=== PATIENT | female | born 1995 | race Caucasian/White ===

== ENCOUNTER 2018-05-13 13:03 | Day surgery (SDC) | payer MEDICAID ==
[2018-05-13 14:26] LABS: APPEARANCE,URINE SLIGHTLY-CLOUDY; BILIRUBIN,URINE NEGATIVE (NEGATIVE); COLOR,URINE YELLOW; GLUCOSE, URINE NEGATIVE (NEGATIVE); KETONES,URINE NEGATIVE (NEGATIVE); LEUKOCYTE ESTERASE,URINE TRACE (NEGATIVE); NITRITE,URINE NEGATIVE (NEGATIVE); PROTEIN,URINE NEGATIVE (NEGATIVE)
[2018-05-13] MEDS ORDERED: ONDANSETRON 4 MG TAB.RAPDIS PO ONE (14:58)
--- NOTE | 2018-05-13 14:58 | ER Document Report ---
ED Medical Screen (RME) - General Chief Complaint: Upper Abdominal Pain Stated Complaint: ABDOMINAL PAIN Time Seen by Provider: 05/13/18 14:49 Notes: Patient presents with right upper and lower quadrant pain more in her lower quadrant radiating to her back continuous, has become increasingly worse since last night. Patient states that she has been having dry heaving and nausea but no vomiting. Last bowel movement was this morning, no black or red in her stool. Patient still has her appendix. No vaginal discharge or concern of vaginal infection. Patient had her gallbladder removed in November in [facility] of this year. I have greeted and performed a rapid initial assessment of this patient. A comprehensive ED assessment and evaluation of the patient, analysis of test results and completion of the medical decision making process will be conducted by additional ED providers. PHYSICAL EXAMINATION: GENERAL: Well-appearing, well-nourished and in no acute distress. HEAD: Atraumatic, normocephalic. EYES: Pupils equal round extraocular movements intact, conjunctiva are normal. ENT: Nares patent NECK: Normal range of motion LUNGS: No respiratory distress Musculoskeletal: Normal range of motion Abdomen: TTP greater in RLQ more than RUQ, + Rovsings sign, +BS NEUROLOGICAL: Normal speech, normal gait. PSYCH: Normal mood, normal affect. SKIN: Warm, Dry, normal turgor, no rashes or lesions noted. TRAVEL OUTSIDE OF THE [place] IN LAST 30 DAYS: No - Related Data Allergies/Adverse Reactions: epinephrine Allergy (Verified 05/13/18 14:17) Physical Exam - Vital signs Vitals: Temp Pulse Resp BP Pulse Ox 98.6 F 87 14 114/82 98 05/13/18 13:08 05/13/18 13:08 05/13/18 13:08 05/13/18 13:08 05/13/18 13:08 Course - Vital Signs Vital signs: Temp Pulse Resp BP Pulse Ox 98.6 F 87 14 114/82 98 05/13/18 13:08 05/13/18 13:08 05/13/18 13:08 05/13/18 13:08 05/13/18 13:08 - Laboratory Laboratory results interpreted by me: 05/13/18 13:45 Urine Urobilinogen 4.0 H Ur Leukocyte Esterase TRACE H
[2018-05-13] MEDS ORDERED: SUCCINYLCHOLINE CHLORIDE INJ 200 MG/10 ML VIAL ONE (15:05)
[2018-05-13] MEDS ORDERED: ROCURONIUM BROMIDE INJ 50 MG/5 ML VIAL IV ONE (15:05)
[2018-05-13 15:32] LABS: ABSOLUTE BASOPHILS # (AUTO) 0.1 10^3/uL (0.0-0.2); ABSOLUTE EOSINOPHILS # (AUTO) 0.2 10^3/uL (0.0-0.6); ABSOLUTE LYMPHOCYTES (AUTO) 3.5 10^3/uL (0.5-4.7); ABSOLUTE MONOCYTES (AUTO) 0.9 10^3/uL (0.1-1.4); ABSOLUTE NEUT (AUTO) 5.2 10^3/uL (1.7-8.2); EOSINOPHILS % (AUTO) 1.8 % (0-6); HEMATOCRIT 42.3 % (36.0-47.0); HEMOGLOBIN 14.7 g/dL (12.0-15.5); LYMPHOCYTES % (AUTO) 35.2 % (13-45); MEAN CORPUSCULAR HEMOGLOBIN 30.6 pg (27.0-33.4); MEAN CORPUSCULAR HGB CONC 34.7 g/dL (32.0-36.0); MEAN CORPUSCULAR VOLUME 88 fl (80-97); MONOCYTES % (AUTO) 8.8 % (3-13); PLATELET COUNT 254 10^3/uL (150-450); RED BLOOD COUNT 4.78 10^6/uL (3.72-5.28); RED CELL DISTRIBUTION WIDTH 12.6 % (11.5-14.0); SEGMENTED NEUTROPHILS % (AUTO) 53.2 % (42-78); TOTAL CELLS COUNTED % (AUTO) 100 %; WHITE BLOOD COUNT 9.9 10^3/uL (4.0-10.5)
--- NOTE | 2018-05-13 15:46 | RADIOLOGY REPORT (SQ) ---
EXAM DESCRIPTION: CT ABD/PELVIS WITH IV ONLY COMPLETED DATE/TIME: 05/13/2018 3:28 pm REASON FOR STUDY: RLQ pain, + Rovsing's COMPARISON: None. TECHNIQUE: CT scan of the abdomen and pelvis performed using helical scanning technique with dynamic intravenous contrast injection. No oral contrast. Images reviewed with lung, soft tissue, and bone windows. Reconstructed coronal and sagittal MPR images reviewed. Delayed images for evaluation of the urinary system also acquired. All images stored on PACS. All CT scanners at this facility use dose modulation, iterative reconstruction, and/or weight based d osing when appropriate to reduce radiation dose to as low as reasonably achievable (ALARA). [facility]: Dose Right [facility]: CareDose [facility]: Dose Right [facility]: Teradose 4D [facility]: [employer] CONTRAST TYPE AND DOSE: contrast/concentration: Isovue 350.00 mg/ml; Total Contrast Delivered: 100.0 ml; Total Saline Delivered: 50.0 ml RENAL FUNCTION: None required. The patient is less than 50 years old. RADIATION DOSE: CT Rad equipment meets quality standard of care and radiation dose reduction techniq ues were employed. CTDIvol: 21.0 - 21.1 mGy. DLP: 2488 mGy-cm.. LIMITATIONS: None. FINDINGS: LOWER CHEST: No significant findings. No nodules or infiltrates. LIVER: Normal size. No masses. No dilated ducts. SPLEEN: Normal size. No focal lesions. PANCREAS: No masses. No significant calcifications. No adjacent inflammation or peripancreatic fluid collections. Pancreatic duct not dilated. GALLBLADDER: Surgically absent. ADRENAL GLANDS: No significant masses or asymmetry. RIGHT KIDNEY AND URETER: No solid masses. No significant calcifications. No hydronephrosis or hyd roureter. LEFT KIDNEY AND URETER: No solid masses. No significant calcifications. No hydronephrosis or hydr oureter. AORTA AND VESSELS: No aneurysm. No dissection. Renal arteries, SMA, celiac without stenosis. RETROPERITONEUM: No retroperitoneal adenopathy, hemorrhage or masses. BOWEL AND PERITONEAL CAVITY: No masses or inflammatory changes. No free fluid or peritoneal masses. APPENDIX: The appendix is thickened, measuring 10 mm in diameter on image 70. There is not appear to be significant periappendiceal stranding. PELVIS: No mass. No free fluid. Normal bladder. ABDOMINAL WALL: No masses. No hernias. BONES: Mild scoliosis. OTHER: No other significant finding. IMPRESSION: There is thickening of the appendix as described. No other evidence of inflammation is noted. Correlate clinically. TECHNICAL DOCUMENTATION: JOB ID: [id number] Quality ID # [id number]: Final reports with documentation of one or more dose reduction techniques (e.g., Au tomated exposure control, adjustment of the mA and/or kV according to patient size, use of iterative reconstruction technique) 2010 [employer]- All Rights Reserved Reading location - IP/workstation name: [facility]
[2018-05-13 15:50] LABS: ALANINE AMINOTRANSFERASE 20 U/L (9-52); ALBUMIN 4.3 g/dL (3.5-5.0); ALKALINE PHOSPHATASE 71 U/L (38-126); ANION GAP 12 (5-19); ASPARTATE AMINO TRANSFERASE 24 U/L (14-36); BILIRUBIN,DIRECT 0.3 mg/dL (0.0-0.4); BILIRUBIN,TOTAL 2.3 mg/dL (0.2-1.3); BLOOD UREA NITROGEN 12 mg/dL (7-20); CALCIUM 9.6 mg/dL (8.4-10.2); CARBON DIOXIDE 23 mmol/L (22-30); CHLORIDE 108 mmol/L (98-107); GLUCOSE 88 mg/dL (75-110); LIPASE 39.8 U/L (23-300); POTASSIUM 4.6 mmol/L (3.6-5.0); SODIUM 142.6 mmol/L (137-145); TOTAL PROTEIN 7.5 g/dL (6.3-8.2)
[2018-05-13] MEDS ORDERED: RINGERS SOLUTION,LACTATED 1,000 ML IV ONE ×2 (17:00→22:16)
[2018-05-13] MEDS ORDERED: AMPICILLIN SOD/SULBACTAM 3 GM VIAL IV ONE (17:28)
--- NOTE | 2018-05-13 17:30 | ER Document Report ---
ED General - General Chief Complaint: Upper Abdominal Pain Stated Complaint: ABDOMINAL PAIN Time Seen by Provider: 05/13/18 14:49 TRAVEL OUTSIDE OF THE [place] IN LAST 30 DAYS: No - HPI Patient complains to provider of: Right-sided abdominal pain Notes: Patient with a history of colectomy in November coming in for right-sided abdominal pain. Patient states occurred last night no fevers chills slight nausea no vomiting no diarrhea she denies any trauma. Patient points mostly to the right upper right lower quadrant as far as the pain. States no vaginal discharge no vaginal bleeding. Resting comfortably upon my evaluation. Patient states pain worse with movement and palpation. Decreased appetite - Related Data Allergies/Adverse Reactions: epinephrine Allergy (Verified 05/13/18 14:17) Past Medical History - Social History Smoking Status: Never Smoker Family History: Reviewed & Not Pertinent Patient has suicidal ideation: No Patient has homicidal ideation: No Renal/ Medical History: Denies: Hx Peritoneal Dialysis Past Surgical History: Reports: Hx Cholecystectomy, Hx Tonsillectomy Review of Systems - Review of Systems Constitutional: No symptoms reported EENT: No symptoms reported Cardiovascular: No symptoms reported Respiratory: No symptoms reported Gastrointestinal: Abdominal pain Genitourinary: No symptoms reported Female Genitourinary: No symptoms reported Musculoskeletal: No symptoms reported Skin: No symptoms reported Hematologic/Lymphatic: No symptoms reported Neurological/Psychological: No symptoms reported -: Yes All other systems reviewed and negative Physical Exam - Vital signs Vitals: Temp Pulse Resp BP Pulse Ox 98.6 F 87 14 114/82 98 05/13/18 13:08 05/13/18 13:08 05/13/18 13:08 05/13/18 13:08 05/13/18 13:08 Interpretation: Normal - General General appearance: Appears well, Alert - HEENT Head: Normocephalic, Atraumatic Eyes: Normal Pupils: PERRL - Respiratory Respiratory status: No respiratory distress Chest status: Nontender Breath sounds: Normal Chest palpation: Normal - Cardiovascular Rhythm: Regular Heart sounds: Normal auscultation Murmur: No - Abdominal Inspection: Normal Distension: No distension Bowel sounds: Normal Tenderness: Tender - Diffuse tenderness palpation of the right upper quadrant right lower quadrant. Regarding no rebound no psoas sign and obturator sign Organomegaly: No organomegaly - Back Back: Normal, Nontender - Extremities General upper extremity: Normal inspection, Nontender, Normal color, Normal ROM , Normal temperature General lower extremity: Normal inspection, Nontender, Normal color, Normal ROM , Normal temperature, Normal weight bearing. No: Lesley's sign - Neurological Neuro grossly intact: Yes Cognition: Normal Orientation: AAOx4 Sary Coma Scale Eye Opening: Spontaneous [place] Coma Scale Verbal: Oriented Sary Coma Scale Motor: Obeys Commands [place] Coma Scale Total: 15 Speech: Normal Motor strength normal: LUE, RUE, LLE, RLE Sensory: Normal - Psychological Associated symptoms: Normal affect, Normal mood - Skin Skin Temperature: Warm Skin Moisture: Dry Skin Color: Normal Course - Re-evaluation Re-evalutation: 05/13/18 22:38 CT scan showed thickened appendix. Reevaluation shows still right upper quadrant right lower quadrant abdominal pain. The contact surgery composite bond worker with the patient to the OR for exploratory lap. - Vital Signs Vital signs: Temp Pulse Resp BP Pulse Ox 98.6 F 87 14 114/82 98 05/13/18 13:08 05/13/18 13:08 05/13/18 13:08 05/13/18 13:08 05/13/18 13:08 - Laboratory Result Diagrams: 05/13/18 15:10 05/13/18 15:10 Laboratory results interpreted by me: 05/13/18 05/13/18 13:45 15:10 Chloride 108 H Total Bilirubin 2.3 H Urine Urobilinogen 4.0 H Ur Leukocyte Esterase TRACE H Discharge - Discharge Clinical Impression: Abdominal pain Qualifiers: Abdominal location: right lower quadrant Qualified Code(s): R10.31 - Right lower quadrant pain Admitting Provider: Surgicalist Nikki Bryson
--- NOTE | 2018-05-13 17:43 | PDOC H&P ---
History of Present Illness Patient complains of: Abdominal pain History of Present Illness: ROB HOLDER is a 22 year old female who was in usual state of good health until yesterday when after eating lunch she had some generalized malaise followed by severe right sided abdominal pain along with nausea and dry heaves and chills. Patient notes that the pain has been severe and unrelenting since. She notes that it is worsened with certain types of movements. She had some diarrhea earlier but none recently. No history of jaundice. Patient did have a laparoscopic cholecystectomy in November this year for gallstones. No history of alcohol abuse. No history of pancreatitis. No history of trauma. She had a vaginal delivery in October of this year and her periods have been irregular ever since. Past Surgical History Past Surgical History: Reports: Cholecystectomy, Tonsillectomy Social History Smoking Status: Never Smoker Frequency of Alcohol Use: None Family History Family History: Reviewed & Not Pertinent - Mother with kidney cancer Parental Family History Reviewed: Yes Children Family History Reviewed: Yes Sibling(s) Family History Reviewed.: Yes Medication/Allergy Allergies/Adverse Reactions: epinephrine Allergy (Verified 05/13/18 14:17) Physical Exam Vital Signs: Temp Pulse Resp BP Pulse Ox 98.6 F 87 14 114/82 98 05/13/18 13:08 05/13/18 13:08 05/13/18 13:08 05/13/18 13:08 05/13/18 13:08 Intake & Output 05/12/18 05/13/18 05/14/18 06:59 06:59 06:59 Weight 117.8 kg General appearance: PRESENT: no acute distress, cooperative Eye exam: PRESENT: conjunctiva pink Respiratory exam: PRESENT: clear to auscultation estrada Cardiovascular exam: PRESENT: RRR GI/Abdominal exam: PRESENT: other - Soft, obese, difficult to tell whether she is distended, diffuse abdominal tenderness with marked tenderness to palpation on the right abdomen with rebound tenderness. Extremities exam: PRESENT: other - No swelling Neurological exam: PRESENT: alert, awake Psychiatric exam: PRESENT: appropriate affect Skin exam: PRESENT: warm Results Laboratory Results: 05/13/18 15:10 05/13/18 15:10 05/13/18 05/13/18 05/13/18 13:45 15:10 15:10 WBC 9.9 RBC 4.78 Hgb 14.7 Hct 42.3 MCV 88 MCH 30.6 MCHC 34.7 RDW 12.6 Plt Count 254 Seg Neutrophils % 53.2 Lymphocytes % 35.2 Monocytes % 8.8 Eosinophils % 1.8 Basophils % 1.0 Absolute Neutrophils 5.2 Absolute Lymphocytes 3.5 Absolute Monocytes 0.9 Absolute Eosinophils 0.2 Absolute Basophils 0.1 Sodium 142.6 Potassium 4.6 Chloride 108 H Carbon Dioxide 23 Anion Gap 12 BUN 12 Creatinine 0.75 Est GFR ( Amer) > 60 Est GFR (Non-Af Amer) > 60 Glucose 88 Calcium 9.6 Total Bilirubin 2.3 H AST 24 ALT 20 Alkaline Phosphatase 71 Total Protein 7.5 Albumin 4.3 Lipase 39.8 Serum HCG, Qual Urine Color YELLOW Urine Appearance SLIGHTLY-CLOUDY Urine pH 7.0 Ur Specific Sheldon 1.020 Urine Protein NEGATIVE Urine Glucose (UA) NEGATIVE Urine Ketones NEGATIVE Urine Blood NEGATIVE Urine Nitrite NEGATIVE Ur Leukocyte Esterase TRACE H Urine WBC (Auto) 1 Urine RBC (Auto) 1 05/13/18 15:10 WBC RBC Hgb Hct MCV MCH MCHC RDW Plt Count Seg Neutrophils % Lymphocytes % Monocytes % Eosinophils % Basophils % Absolute Neutrophils Absolute Lymphocytes Absolute Monocytes Absolute Eosinophils Absolute Basophils Sodium Potassium Chloride Carbon Dioxide Anion Gap BUN Creatinine Est GFR ( Amer) Est GFR (Non-Af Amer) Glucose Calcium Total Bilirubin AST ALT Alkaline Phosphatase Total Protein Albumin Lipase Serum HCG, Qual NEGATIVE Urine Color Urine Appearance Urine pH Ur Specific Sheldon Urine Protein Urine Glucose (UA) Urine Ketones Urine Blood Urine Nitrite Ur Leukocyte Esterase Urine WBC (Auto) Urine RBC (Auto) Impressions: Abdomen/Pelvis CT 05/13/18 14:57 IMPRESSION: There is thickening of the appendix as described. No other evidence of inflammation is noted. Correlate clinically. Assessment & Plan - Diagnosis (1) Abdominal pain Is this a current diagnosis for this admission?: Yes Plan: Right-sided abdominal pain of unclear etiology. Patient with rebound tenderness along with a CT scan demonstrating an abnormal appearing appendix although distinct inflammatory changes are not seen. Her total bilirubin is mildly elevated but her direct bilirubin and the remainder of her liver function studies are normal, consistent with Gilbert's syndrome rather than retained common bile duct stone. Furthermore a retained common bile duct stone would not give her such degree of tenderness. I think ruptured ovarian cyst is in the differential diagnosis which could cause peritoneal signs that she is exhibiting however radiologist does not see free fluid in the pelvis. I have discussed with the patient risk and benefits of exploratory laparoscopy versus observation including risk of bleeding, infection, adjacent structure injury, conversion to an open procedure, and stump leak all associated with an operation. Also the risk of missing a significant intra-abdominal process with resultant peritonitis if observation option is taken. Patient wishes to undergo surgery which I think is a reasonable option based upon her marked tenderness with rebound tenderness and an abnormal appendix seen on CT scan. Patient understands that I will almost certainly remove her appendix even if the appendix does appear normal to exclude this diagnosis now and in future occasions if the pain were to recur. If the appendix appears normal I will do an exploratory laparoscopy to exclude other causes.
[2018-05-13] MEDS ORDERED: MORPHINE SULFATE 10 MG/ML INJ IV ONE (18:34)
[2018-05-13] MEDS ORDERED: DEXAMETHASONE SOD PHOSPHATE INJ 4 MG/1 ML VIAL ONE (20:40)
[2018-05-13] MEDS ORDERED: ACETAMINOPHEN 1,000 MG/100 ML RTUPB IV ONE (20:40)
[2018-05-13] MEDS ORDERED: PROPOFOL INJ 200 MG/20 ML VIAL IV ONE (20:40)
[2018-05-13] MEDS ORDERED: ONDANSETRON HCL INJ/PF 4 MG/2 ML SDV ONE (20:40)
[2018-05-13] MEDS ORDERED: MIDAZOLAM 2 MG/2 ML INJ ONE (20:40)
[2018-05-13] MEDS ORDERED: FENTANYL CITRATE INJ/PF 100 MCG/2 ML AMPUL ONE (20:40)
[2018-05-13] MEDS ORDERED: MORPHINE SULFATE 10 MG/ML INJ ONE (20:41)
[2018-05-13] MEDS ORDERED: BUPIVACAINE HCL 0.25 % INJ/PF (2.5 MG/1 ML) 30 ML VIAL ONE (20:45)
[2018-05-13] MEDS ORDERED: SCOPOLAMINE HYDROBROMIDE 1.5 MG PATCH.TD72 ONE (20:55)
[2018-05-13] MEDS ORDERED: FENTANYL CITRATE INJ/PF 100 MCG/2 ML AMPUL IV PRN ×3 (21:27)
[2018-05-13] MEDS ORDERED: PROMETHAZINE HCL INJ 25 MG/1 ML VIAL IV PRN ×2 (21:27)
[2018-05-13] MEDS ORDERED: DIPHENHYDRAMINE HCL 50 MG/ML VIAL IV PRN (21:27)
[2018-05-13] MEDS ORDERED: MORPHINE SULFATE 10 MG/ML INJ IV PRN ×2 (21:27→22:12)
[2018-05-13] MEDS ORDERED: MEPERIDINE HCL/PF INJ 25 MG/1 ML DISP.SYRIN IV PRN (21:27)
[2018-05-13] MEDS ORDERED: ONDANSETRON HCL INJ/PF 4 MG/2 ML SDV IV PRN (22:12)
--- NOTE | 2018-05-13 22:12 | Operative Report ---
Operative Report DATE OF SURGERY: 05/13/18 PREOPERATIVE DIAGNOSIS: Abdominal pain POSTOPERATIVE DIAGNOSIS: Appendicitis OPERATION: Laparoscopic appendectomy, exploratory laparoscopy SURGEON: JUSTYN KING ANESTHESIA: GA TISSUE REMOVED OR ALTERED: Appendix COMPLICATIONS: None ESTIMATED BLOOD LOSS: Minimal INTRAOPERATIVE FINDINGS: Distended appendix with the tip of the appendix demonstrating inflammatory changes but no pus and no evidence of perforation. Small amount of bloody fluid in the pelvis. Normal-appearing ovaries. Normal- appearing sigmoid colon and right colon. Normal-appearing anterior abdominal wall. Normal-appearing distal small bowel. Normal-appearing liver other than postoperative changes at the gallbladder bed. Normal-appearing uterus PROCEDURE: Informed consent was obtained. Patient was brought to the operating room placed on the operating room table in the supine position. After satisfactory induction of general anesthesia patient's abdomen was prepped and draped in usual sterile fashion. A supraumbilical midline incision was made dissection carried down through the fascia and the peritoneal cavity was entered. Cutler trocar was inserted and pneumoperitoneum produced with good patient toleration. A 5 mm trocar was placed in the right lateral abdomen lateral to the rectus above the level of the umbilicus. Another 5 mm trocar was placed in the left lateral abomen. Patient was placed in a Trendelenburg position with the right side up. The appendix appeared mildly distended with inflammatory changes at the tip but no pus and no evidence of perforation. Findings were consistent with early appendicitis. To ensure that there were no other significant processes going on, an exploratory laparoscopy was performed. Both of the ovaries were visualized and they appeared normal. There was small amount of bloody fluid in the pelvis. The uterus appeared normal. The sigmoid colon appeared normal as did the right colon. The anterior abdominal wall appeared normal with no evidence of endometriosis nor hernia. The liver appeared normal other than slight adhesions at the gallbladder bed consistent with prior cholecystectomy. The small bowel was run distally and it appeared normal. No gross evidence of omental abnormalities were seen. A plane was created between the mesoappendix and the appendix at the base of the appendix. Using a Endo BETZAIDA stapling device the appendix was taken flush with the cecum. The stump closure appeared secure. The mesoappendix was taken using a vascular load of the Endo BETZAIDA stapling device. Hemostasis appeared good. The operative field was lightly irrigated and irrigant aspirated out. The appendix was placed in an Endobag and removed through the Cutler trocar site fascial defect. All trochars were removed under the direct vision of the laparoscope to ensure hemostasis. The Cutler trocar site fascial defect was closed with interrupted Vicryl sutures. All skin incisions were closed with subcuticular interrupted Monocryl sutures. Marcaine was injected at the operative sites. Patient tolerated procedure well with no apparent complications and was taken to the recovery area in stable condition.
[2018-05-13] MEDS ORDERED: METOCLOPRAMIDE HCL INJ/PF 10 MG/2 ML SDV ONE (22:54)
--- NOTE | 2018-05-14 07:46 | PDOC DISCHARGE SUMMARY ---
General - Admit/Disc Date/PCP Admission Date/Primary Care Provider: 05/13/18 19:24 Discharge Date: 05/14/18 - Discharge Diagnosis (1) Acute appendicitis Is this a current diagnosis for this admission?: Yes - Additional Information Discharge Diet: As Tolerated Discharge Activity: No Lifting Over 10 Pounds Home Medications: Ethinyl Estradiol/Drospirenone [Yareli 28 Tablet] 1 tab PO DAILY 05/13/18 History of Present Illness History of Present Illness: ROB HOLDER is a 22 year old female admitted with abdominal pain and appendicitis. She was taken to the OR for definitive treatment. Hospital Course Hospital Course: She was taken to the OR for laparoscopic appendectomy. She was found to have nonperforated appendicitis. By POD #1 she was ambulating, tolerating a diet, her pain was controlled, and it was felt that she had reached maximal hospital benefit and was fit for discharge. Physical Exam Vital Signs: Temp Pulse Resp BP Pulse Ox 98.0 F 82 16 112/63 95 05/14/18 04:50 05/14/18 04:50 05/14/18 04:50 05/14/18 04:50 05/14/18 04:50 Intake & Output 05/13/18 05/14/18 05/15/18 06:59 06:59 06:59 Intake Total 860 Output Total 490 Balance 370 Weight 119.1 kg Results Impressions: Abdomen/Pelvis CT 05/13/18 14:57 IMPRESSION: There is thickening of the appendix as described. No other evidence of inflammation is noted. Correlate clinically. Qualifiers - * PATIENT BEING DISCHARGED WITH ANY OF THE FOLLOWING DIAGNOSIS: No Plan Discharge Plan: d/c home. diet as tolerated. activity: no lifting >10 lbs x 2 weeks. OK to shower normally tomorrow. No tub baths or swimming x 2 weeks. f/u at [facility] in 7- 10 days. [place] 5/325mg po q6 hrs PRN pain. Time Spent: Less than 30 Minutes
[2018-05-14 08:16] VITALS: BP 112/52
[2018-05-14] MEDS ORDERED: ETHINYL ESTRADIOL PO SCH (10:00)
[2018-05-14] MEDS ORDERED: DROSPIRENONE PO SCH (10:00)
== END 2018-05-14 10:07 | disposition home or self-care (01) ==
LOC: ER 13:03 → UNDOADMIN 19:24 → EH 19:24 → OROUT 22:12 → ER 22:12 → 4S 22:30 → EH 23:30 → 4S 23:40 → 2N 05-14 00:09 → EH 05-14 00:09 → 2N 05-14 00:09 → 4S 05-14 00:25 → 2N 05-14 00:25 → 4S 05-14 00:25 → 2N 05-14 01:21 → 4S 05-14 01:21 → OROUT 05-14 10:07 → UNDODISIN 05-14 10:07
PROVIDERS: ATTEND Surgery
DX: K35.80 Unspecified acute appendicitis (principal); Z79.3 Long term (current) use of hormonal contraceptives
CPT/HCPCS: 99284; 96361; 96374; 36415; 87040; 83690; 84703; 85025; 81025; 80053; 81001; 88304 ×2; 74177; 44970; J2250; J3490 ×2; J1100; S0119; J3010; J0295; J2765; J2270; J0330; J2405 ×2; S0020; J7120 ×2; J2704; J0131; 840